=== PATIENT | male | born 1975 | race Caucasian/White ===

== ENCOUNTER 2020-02-13 19:39 | Emergency (ER) | payer MEDICAID ==
[~2020-02-13] VITALS: Ht 195.6 cm; Wt 137.2 kg
[2020-02-13 19:41] VITALS: Ht 195.6 cm; Wt 137.2 kg
[2020-02-13 20:53] LABS: microscopic required? NO
[2020-02-13 21:05] LABS: urine erythrocyte NEGATIVE (NEGATIVE)
[2020-02-13 21:07] LABS: BASOPHIL % 0.4 % (0-2); PLATELET COUNT 307 x10^3mcL (130-400); RED CELL DISTRIBUTION WIDTH 13.9 % (11.5-14.5)
[2020-02-13 21:21] LABS: BILIRUBIN TOTAL 0.25 mg/dL (0.20-1.00); CALCIUM 8.8 mg/dL (8.5-10.1); CARBON DIOXIDE 30.9 mmol/L (21-32); CREATININE SERUM 1.5 mg/dL (0.7-1.3); MAGNESIUM 2.2 mg/dL (1.8-2.4); POTASSIUM SERUM 4.3 mmol/L (3.5-5.1); TOTAL PROTEIN, SERUM 7.5 g/dL (6.4-8.2)
[2020-02-13 21:22] LABS: ALBUMIN 3.3 g/dL (3.4-5.0)
[2020-02-14 00:25] VITALS: BP 121/70
== END 2020-02-14 00:25 | disposition home or self-care (01) ==
LOC: ED 19:39
PROVIDERS: Emergency Medicine
DX: E11.65 Type 2 diabetes mellitus with hyperglycemia (principal)
CPT/HCPCS: 82962; 83880; J7030; Q0092